=== PATIENT | male | born 1990 | race African-American/Black ===

== ENCOUNTER 2017-03-01 10:13 | Emergency (ER) | payer OTHER ==
[~2017-03-01] VITALS: Ht 180.3 cm; Wt 88.5 kg
--- NOTE | ~2017-03-01 | CR211 ---
[facility] A Service of [facility] [place] RADIOLOGY TEXT RESULTS PATIENT: MARC CERRATO LOC[facility]: [facility] : [birth year] UNIT #: [id number] AGE: [address]: Margareth Ragsdale SEX: M ORDER DR: [id number] [facility]. [place], [place] [address] [id number] E MR#: [id number] Acc #: [id number] NAME: MARC CERRATO : 1990 SEX: M STUDY DATE/TIME: 03/01/2017 10:39 UNIT: [facility] ROOM: STUDY DESCRIPTION: CR Ribs Uni 2 View W PA Ch Rt Attending Physician: Margareth Ragsdale P.A.-C. Ordering Physician: Margareth Ragsdale P.A.-C. Primary Care Physician: No Primary Care Physician MEDICAL IMAGING REPORT This report is preliminary unless electronic signature is present EXAM Chest with right rib series; 03/01/2017, 1039 hours. CLINICAL HISTORY 26-year-old complaining of right anterior rib pain and right shoulder pain following football injury today. COMPARISON None. FINDINGS Upright chest film demonstrates normal cardiac, mediastinal and hilar contours. The lungs are clear. There is no pleural effusion or pneumothorax. AP and oblique views of the right ribs demonstrate a transverse minimally displaced fracture of the anterior right eleventh rib. IMPRESSION 1. There is a transverse minimally displaced fracture of the anterior right eleventh rib. There is no pleural effusion or pneumothorax. Dictated by... Alka Lucia M.D. THIS IS AN ELECTRONICALLY VERIFIED REPORT Alka Lucia M.D. at 03/01/2017 5:05 PM RANDY/shmuel TD: 03/01/2017 16:55 JOB #: [id number] [facility] A Service of [facility] [place] RADIOLOGY TEXT RESULTS PATIENT: MARC CERRATO LOCATION: [place] : 90 UNIT #: [id number] AGE: [address]: Margareth Ragsdale SEX: M ORDER DR: MEDICAL IMAGING REPORT Page 1 of 1 COPY
--- NOTE | ~2017-03-01 | CR230 ---
[facility] A Service of [facility] RADIOLOGY TEXT RESULTS PATIENT: MARC CERRATO LOCATION: [facility] : 90 UNIT #: [id number] AGE: [address]: Margareth Ragsdale SEX: M ORDER DR: [id number] [facility] [address] [facility]. [place], [place] [address] [id number] E MR#: [id number] Acc #: [id number] NAME: MARC CERRATO : 1990 SEX: M STUDY DATE/TIME: 03/01/2017 UNIT: [facility] ROOM: STUDY DESCRIPTION: CR Shoulder Min 2 View Rt Attending Physician: Margareth Ragsdale P.A.-C. Ordering Physician: Margareth Ragsdale P.A.-C. Primary Care Physician: No Primary Care Physician MEDICAL IMAGING REPORT This report is preliminary unless electronic signature is present EXAM Right shoulder 3 views 03/01/2017 1039 hours HISTORY Right shoulder pain and right anterior rib pain following injury playing football today. COMPARISON None FINDINGS AP views in internal and external rotation and a scapula Y-view demonstrate no fracture, dislocation or degenerative change. IMPRESSION Negative right shoulder. Dictated by... Alka Lucia M.D. THIS IS AN ELECTRONICALLY VERIFIED REPORT Alka Lucia M.D. at 03/01/2017 5:05 PM RANDY/harshil TD: 03/01/2017 16:50 JOB #: [id number] MEDICAL IMAGING REPORT Page 1 of 1 COPY
== END 2017-03-01 11:20 | disposition home or self-care (01) ==
LOC: CED 10:13 → CFTX 10:13
DX: S22.31XA Fracture of one rib, right side, initial encounter for closed fracture (principal); S46.911A Strain of unspecified muscle, fascia and tendon at shoulder and upper arm level, right arm, initial encounter; W21.01XA Struck by football, initial encounter; Y92.321 Football field as the place of occurrence of the external cause
CPT/HCPCS: 71101; 73030; 99284